=== PATIENT | female | born 1990 | race African-American/Black ===

== ENCOUNTER 2019-12-14 17:01 | Emergency (ER) | payer BC ==
[2019-12-14 17:20] VITALS: BP 132/83; PULSE 104; TEMP 98.5; BMI 50.9
--- NOTE | 2019-12-14 17:37 | PDOC ---
History of Present Illness - General Chief Complaint: Pain Stated Complaint: LEFT KNEE PAIN Time Seen by Provider: 12/14/19 17:24 History Source: Patient Exam Limitations: No Limitations - History of Present Illness Initial Comments: 12/14/19 17:34 Patient is a 29-year-old female presents to the ED with left knee pain that she has had for the last 12 days. She states she stood up at work and felt a pop in her knee and it has been hurting since. She had ACL surgery on that same knee in 2013. She denies any numbness or tingling. She was seen in an urgent care and was advised to follow-up with orthopedics. She states she does not have an orthopedic appointment until 3 days from now. She has been taking Naprosyn but it made her sick so she stopped taking it. She has been taking Tylenol with little relief. She denies any other complaints at this time. Past History - Medical History Allergies/Adverse Reactions: Allergies Allergy/AdvReac Type Severity Reaction Status Date / Time No Known Allergies Allergy Verified 12/14/19 17:17 Asthma: Yes COPD: No - Immunization History Immunization Up to Date: Yes - Psycho-Social/Smoking History Smoking History: Never smoked - Substance Abuse Hx (Audit-C & DAST Scrn) How often the patient has a drink containing alcohol: Never Score: In Men: 4 or > Positive; In Women: 3 or > Positive: 0 Screen Result (Pos requires Nsg. Audit-10AR): Negative In the last yr the pt used illegal drug/Rx for NonMed reason: No Score: Yes response is considered Positive: 0 Screen Result (Positive result requires Nsg. DAST-10): Negative Review of Systems - Review of Systems Comments:: 12/14/19 17:37 - Review of Systems Able to Perform ROS?: Yes Constitutional: No: Fever, Chills, Loss of Appetite, Night Sweats, Weakness HEENTM: No: Eye Pain, Vision changes, Ear Pain, Throat Pain, Throat Swelling, Mouth Pain, Difficulty Swallowing Respiratory: No: Cough, Shortness of Breath, Wheezing, Sputum Production Cardiac (ROS): No: Chest Pain, Chest Tightness, Palpitations, Irregular Heart Beat, Edema ABD/GI: No: Nausea, Vomiting, Abdominal Pain, Diarrhea : No Dysuria, No Hematuria, No Frequency, No Urgency Musculoskeletal: No: Muscle Pain, Back Pain, Muscle Weakness, Neck Pain; Positive: L knee pain Integumentary: No: Lesions, Rash Neurological: No: Headache, Numbness, Tingling, Weakness, Speech Difficulties *Physical Exam - Vital Signs Last Vital Signs Temp Pulse Resp BP Pulse Ox 98.5 F 104 H 20 132/83 98 12/14/19 17:17 12/14/19 17:17 12/14/19 17:17 12/14/19 17:17 12/14/19 17:17 - Physical Exam 12/14/19 17:38 - Physical Exam General Appearance: Nourished, Appropriately Dressed, No Distress HEENT: EOMI, Normal Voice, Hearing Grossly Normal Neck: Supple, No Lymphadenopathy (R), No Lymphadenopathy (L), No Rigidity, No Decreased range of motion Respiratory/Chest: Lungs Clear, Normal Breath Sounds. No Respiratory Distress, No Accessory Muscle Use Cardiovascular: Regular Rhythm, Regular Rate, S1, S2 Musculoskeletal: Normal Inspection. Left knee with no reproducible tenderness to palpation. ACL appears intact without laxity upon Paulo's test. No posterior laxity. Crepitus appreciated with range of motion. ROM from 0 to 110 degrees actively. Any range of motion reproduces pain for the patient. Patient walking with an antalgic gait. Extremity: Normal Capillary Refill, Normal Inspection Integumentary: Normal Color, Dry. No Rash Neurologic: motor coach driver II-XII NML intact, Fully Oriented, Alert, Normal Mood/Affect, Normal Response ED Treatment Course - RADIOLOGY Radiology Studies Ordered: Category Date Time Status KNEE 3 POS-RIGHT [RAD] Stat Radiology 12/14/19 17:30 Ordered Medical Decision Making - Medical Decision Making 12/14/19 17:40 Assessment: Patient is a 29-year-old female with left knee pain for the last 12 days. Plan: -Left knee x-ray ordered -Discussed sending Motrin to the patient's pharmacy but she states she will buy it [id number] -If there is no acute process on x-ray, will refer the patient to orthopedics although she does have an appointment with an outpatient orthopedist in 3 days. This is not the same orthopedist who did her ACL surgery as that doctor is in [place] and she has not followed up with him. 12/14/19 18:01 Right knee x-ray shows no acute fracture or dislocation. ACL button appears to be in place. The patient has been made aware that she can take Tylenol or ibuprofen for pain and she should ice and elevate her knee. She will follow-up with orthopedics this , 3 days, but another referral has been given to her in the event that she can get an appointment sooner. She understands and agrees with this treatment plan and she is stable for discharge. Discharge - Discharge Information Problems reviewed: Yes Clinical Impression/Diagnosis: Left knee pain Qualifiers: Chronicity: acute Qualified Code(s): M25.562 - Pain in left knee Condition: Stable Disposition: HOME - Follow up/Referral Referrals: Geronimo Sullivan DO [Staff Physician] - Call tomorrow - Patient Discharge Instructions Patient Printed Discharge Instructions: DI for Knee Pain Additional Instructions: Ice and elevate your knee. You can continue to take Tylenol or try ibuprofen for pain. Follow-up with orthopedics at your scheduled appointment in 3 days or with the above referral sooner if possible. Avoid any strenuous activity but you can move gently to help preserve range of motion. - Post Discharge Activity Work/Back to School Note: Back to Work
== END 2019-12-14 18:10 | disposition home or self-care (01) ==
LOC: JER 17:01 → JERFT 17:01
DX: M25.562 Pain in left knee (principal)
CPT/HCPCS: 73562-TC-LT-FY; 99283-25